=== PATIENT | female | born 1990 | race Two or more races ===

== ENCOUNTER 2016-12-29 11:56 | Emergency (ER) | payer MEDICAID ==
[~2016-12-29] VITALS: Ht 160 cm; Wt 53.5 kg
--- NOTE | 2016-12-29 12:16 | NUR ---
PATIENT PRESENTS TO ER C/O NECK SWELLING. STATING SHE WAS TAKING ANTIBIOTICS FROM SONI. PATIENT IS A/OX 4. BREATHING EVEN AND UNLABORED ON ROOM AIR. NO SOB. VITALS STABLE. SAFETY AND COMFORT MEASURES IN PLACE. AWAITING MD ORDERS.
[2016-12-29 12:44] LABS: BASOPHILS % (AUTO) 0.6 % (0.0-2.0); EOSINOPHILS # (AUTO) 0.2 /CMM (0.0-0.7); EOSINOPHILS % (AUTO) 3.3 % (0.0-6.0); HEMATOCRIT 39 % (33-45); HEMOGLOBIN 12.6 g/dL (11.5-14.8); LYMPHOCYTES # (AUTO) 2.9 /CMM (0.8-4.8); LYMPHOCYTES % (AUTO) 39.8 % (20.0-44.0); MEAN CORPUSCULAR HEMOGLOBIN 26 PG (26.0-33.0); MEAN CORPUSCULAR HGB CONC 32 g/dl (31.0-36.0); MEAN CORPUSCULAR VOLUME 80 fL (82-100); MONOCYTES # (AUTO) 0.5 /CMM (0.1-1.30); MONOCYTES % (AUTO) 7.3 % (2.0-12.0); NEUTROPHILS # (AUTO) 3.6 /CMM (1.8-8.9); PLATELET COUNT (AUTO) 307 /CMM (150-450); RDW COEFFICIENT OF VARIATION 14.1 (11.5-15.0); WHITE BLOOD COUNT (AUTO) 7.3 K/uL (4.3-11.0)
--- NOTE | 2016-12-29 13:05 | NUR ---
US TECH AT BEDSIDE.
[2016-12-29 13:15] LABS: T4 (THYROXINE) 9.4 ug/dL (4.7-13.3); THYROID STIMULATING HORMONE 1.411 uIU/mL (0.358-3.74)
--- NOTE | 2016-12-29 13:34 | NUR ---
NIGHT MANAGER AT BEDSIDE.
[2016-12-29 13:43] VITALS: BP 122/86
--- NOTE | 2016-12-29 13:43 | NUR ---
Patient discharged to home in stable condition. Written and verbal after care instructions given. Patient verbalizes understanding of instruction.
== END 2016-12-29 13:48 | disposition home or self-care (01) ==
LOC: ER 11:58
DX: E04.1 Nontoxic single thyroid nodule (principal); J02.9 Acute pharyngitis, unspecified
CPT/HCPCS: 36415; 76536-TC; 84436-TC; 84443-TC; 84480; 85025-TC; A4606; Z7610

== ENCOUNTER 2018-12-29 04:18 | Emergency (ER) | payer BC ==
[~2018-12-29] VITALS: Ht 160 cm; Wt 49.0 kg
--- NOTE | 2018-12-29 04:46 | NUR ---
BIB FAQMILY FRO ANXIETY ATTACK. PT HAD ONE SIMILAR EPIASODE 6 YRS AGO. CURRENTLY IS NOT TAKING ANY MEDICATION FOR ANXIETY
[2018-12-29] MEDS ORDERED: LORAZEPAM 0.5 MG TABLET ONE (05:10)
--- NOTE | 2018-12-29 05:21 | NUR ---
RESTING IN BED AWAKE BUT DROWSY. CALM AND QUIET .MOM AT THE BED SIDE. VSS. WILL CONT TO MONITOR ,
[2018-12-29] MEDS ORDERED: LORAZEPAM 0.5 MG TABLET PO ONE (05:30)
[2018-12-29 05:53] VITALS: BP 116/78
--- NOTE | 2018-12-29 05:53 | NUR ---
Patient discharged to home in stable condition. Written and verbal after care instructions given. Patient verbalizes understanding of instruction and reported feeling better.
== END 2018-12-29 05:54 | disposition home or self-care (01) ==
LOC: ER 04:19
DX: F41.9 Anxiety disorder, unspecified (principal)
CPT/HCPCS: 80305

== ENCOUNTER 2022-06-23 03:44 | Inpatient (IN) | payer OTHER ==
[~2022-06-23] VITALS: Ht 162.6 cm; Wt 63.5 kg
--- NOTE | 2022-06-23 04:00 | NUR ---
Patient came in to the er c/o abdominal pain, states she think its "appendicitis". on room air, breathing evenly and unlabored. Kept comfortable, will continue to monitor accordingly.
[2022-06-23] MEDS ORDERED: KETOROLAC TROMETHAMINE INJ 30 MG/ML VIAL IV ONE (04:30)
[2022-06-23] MEDS ORDERED: ONDANSETRON HCL/PF 4 MG/2 ML VIAL IV ONE (04:30)
[2022-06-23] MEDS ORDERED: KETOROLAC TROMETHAMINE 15 MG/ML VIAL ONE (04:43)
[2022-06-23] MEDS ORDERED: ONDANSETRON HCL/PF 4 MG/2 ML VIAL ONE (04:44)
[2022-06-23 04:59] LABS: BASOPHILS % (AUTO) 0.1 % (0.0-2.0); EOSINOPHILS % (AUTO) 0.1 % (0.0-6.0); HEMATOCRIT 35 % (33-45); HEMOGLOBIN 11.4 g/dL (11.5-14.8); LYMPHOCYTES # (AUTO) 1.7 K/uL (0.8-4.8); LYMPHOCYTES % (AUTO) 10.1 % (20.0-44.0); MEAN CORPUSCULAR HGB CONC 32 g/dl (31.0-36.0); MEAN CORPUSCULAR VOLUME 78 fL (82-100); MONOCYTES # (AUTO) 0.9 K/uL (0.1-1.30); MONOCYTES % (AUTO) 5.5 % (2.0-12.0); NEUTROPHILS # (AUTO) 13.8 K/uL (1.8-8.9); NEUTROPHILS % (AUTO) 84.2 % (43.0-81.0); PLATELET COUNT (AUTO) 217 K/uL (150-450); RED BLOOD CELL COUNT(AUTO) 4.57 MIL/uL (4.0-5.2); WHITE BLOOD COUNT (AUTO) 16.4 K/uL (4.3-11.0)
[2022-06-23 04:59] LABS: BILIRUBIN,URINE NEGATIVE (NEGATIVE); COLOR,URINE YELLOW (YELLOW); LEUKOCYTE ESTERASE ,URINE NEGATIVE (NEGATIVE); NITRITE, URINE NEGATIVE (NEGATIVE); PROTEIN,URINE NEGATIVE (NEGATIVE); UGLUCOSE NEGATIVE (NEGATIVE); UROBILINOGEN,URINE 0.2 EU/dL (0.2)
[2022-06-23 05:00] LABS: BACTERIA,URINE Rare /HPF (None Seen); RBC,URINE 0-2 /HPF (0-2); SQUAMOUS EPITHELIAL CELL,UR Few /HPF (None Seen); WBC,URINE 0-2 /HPF (0-3)
[2022-06-23 05:10] LABS: CALCIUM, SERUM 9.2 mg/dL (8.5-10.1); CREATININE 0.7 mg/dL (0.6-1.3); POTASSIUM 4.1 mmol/L (3.5-5.1)
[2022-06-23 05:20] LABS: ALBUMIN 3.7 g/dL (3.4-5.0); BILIRUBIN,DIRECT 0.1 mg/dL (0.0-0.2); TOTAL PROTEIN, SERUM 7.4 g/dL (6.4-8.2)
[2022-06-23] MEDS ORDERED: IOHEXOL-300 100 ML VIAL IV ONE (05:34)
[2022-06-23] MEDS ORDERED: CT SWABBABLE VALVE TRANS SET 1 EA INFUS.SET MC ONE (05:35)
[2022-06-23] MEDS ORDERED: IV NS 0.9% 250 ML IV ONE (05:35)
[2022-06-23 05:40] LABS: BILIRUBIN,TOTAL 0.4 mg/dL (0.2-1.0)
[2022-06-23] MEDS ORDERED: PIPERACILLIN /TAZOBACTAM 3.375 G VIAL IV ONE (06:56)
[2022-06-23] MEDS ORDERED: PIPERACILLIN /TAZOBACTAM 3.375 G in IV D5W 50 ML IV ONE (07:00)
--- NOTE | 2022-06-23 07:00 | NUR ---
covid swab sent
--- NOTE | 2022-06-23 07:04 | NUR ---
pt states last full meal 5pm 06/22/22
[2022-06-23] MEDS ORDERED: MORPHINE SULFATE INJ 2 MG/ML DISP.SYRIN IV ONE ×2 (07:30→10:00)
[2022-06-23] MEDS ORDERED: MORPHINE SULFATE INJ 2 MG/ML DISP.SYRIN ONE (07:40)
--- NOTE | 2022-06-23 07:45 | NUR ---
PT ABLE TO AMBULATE TO BATHROOM.
--- NOTE | 2022-06-23 07:55 | NUR ---
MORPHINE 2MG IV GIVEN INDICATED FOR ABD PAIN.
[2022-06-23] MEDS ORDERED: MORPHINE SULFATE INJ 4 MG/ML DISP.SYRIN ONE (09:40)
--- NOTE | 2022-06-23 10:30 | NUR ---
REPORT GIVEN TO SOBIA WEBSTER FOR KURTIS
--- NOTE | 2022-06-23 10:36 | NUR ---
NPO SINCE [id number]/22/22
--- NOTE | 2022-06-23 10:50 | NUR ---
RN NOTE- PT TO RM 311-2 FOR LAPRASCOPIC APPENDECTOMY. BEGIN ADMISSION PROCESS
--- NOTE | 2022-06-23 10:55 | NUR ---
RN ADMITTING NOTE RECEIVED PATIENT FROM ED ACCOMPANIED BY FAMILY. PATIENT IS A/0X4 AND ABLE TO MAKE NEEDS KNOWN. PATIENT REPORTS PAIN OF 9/10 BUT SAYS THE MORPHINE SHE RECEIVED IN ED IS HELPING HER. BREATHING ON ROOM AIR, NO SOB OR SIGNS OF RESPIRATORY DISTRESS NOTED. NO VOCALIZATION OF CARDIAC PAIN OR DISTRESS AT THIS TIME. SAFETY PRECAUTIONS IN PLACE WITH BED IN LOWEST LOCKED POSITION, TRAY AND CALL LIGHT WITHIN REACH. PATIENT SCHEDULED FOR LAPAROSCOPIC APPENDECTOMY. PATIENT STATES SHES READY FOR SURGERY, ALL CONSENTS SIGNED. PATIENT KEPT NPO. ALL NEEDS MET AT THIS TIME. WILL CONTINUE TO MONITOR
--- NOTE | 2022-06-23 12:20 | NUR ---
RN NOTE- SURGICAL TEAM TO FLOOR. TOOK PT TO SURGICAL SUITE. TYPE/SCREEN, CONSENT AND TRANSFUSION, PRE OP CHECKLIST COMPLETED.
[2022-06-23] MEDS ORDERED: ROCURONIUM BROMIDE 50 MG/5 ML ONE (13:07)
[2022-06-23] MEDS ORDERED: FENTANYL PF 100MCG/2ML AMPUL ONE (13:07)
[2022-06-23] MEDS ORDERED: BUPIVACAINE MPF W/EPI 0.25% 30 ML VIAL ONE (13:24)
[2022-06-23] MEDS ORDERED: HYDROCODONE/APAP 5/325MG TABLET PO PRN (13:30)
[2022-06-23] MEDS ORDERED: ACETAMINOPHEN 325 MG TABLET PO PRN (13:30)
[2022-06-23] MEDS ORDERED: ONDANSETRON HCL/PF 4 MG/2 ML VIAL IVP PRN (13:30)
[2022-06-23] MEDS: PIPERACILLIN /TAZOBACTAM 3.375 G in IV D5W 50 ML IV SCH ×2 (15:55→22:04)
[2022-06-23] MEDS ORDERED: clonazePAM 0.5 MG TABLET PO PRN (16:00)
[2022-06-23] MEDS: HYDROMORPHONE 1 MG/1 ML DISP.SYRIN IV PRN ×2 (16:37→20:42)
--- NOTE | 2022-06-23 18:40 | NUR ---
RN CLOSING NOTE PT AWAKE IN BED, COMFORTABLY RESTING WITH FRIENDS AT BEDSIDE. A/OX4 AND ABLE TO MAKE NEEDS KNOWN. PT IS ON ROOM AIR, BREATHING EVEN AND NONLABORED WITH NO SOB OR RESPIRATORY DISTRESS NOTED. NO CARDIAC DISTRESS VOCALIZED OR EXPRESSED. PAIN FROM LAPAROSCOPIC APPENDECTOMY CONTROLLED WITH MEDS AND ICE. SAFETY PRECAUTIONS IN PLACE WITH BED IN LOWEST LOCKED POSITION, TRAY AND CALL LIGHT WITHIN REACH. ALL NEEDS MET AT THIS TIME. WILL ENDORSE KURTIS TO RETURNING OFFICER NURSE.
--- NOTE | 2022-06-23 19:50 | NUR ---
MSRN FULLY AWAKE, POST OP PAIN TOLERABLE FOR NOW. LAP SITES COVERED, DRY AND INTACT.ICE PACKS OVER SITE. DISCUSS WITH PATIENT PLAN OF CARE AND MEDICATION REGIMEN. APPEARS TO UNDERSTAND. ASSISTED TO RESTROOM VOIDED FREELY. SAFETY PRECAUTIONS EMPHAIZED WELL UNDERSTOOD.
[2022-06-23 20:00] VITALS: BP_SYST 119; BP_SYST 61; BP_DIAS 107; BP_DIAS 68
--- NOTE | 2022-06-23 20:45 | NUR ---
MSRN VERBALIZES POST OP ABD PAIN, DILAUDED 1 MG IVP ADMINISTERED. BEDREST FOR NOW, INSTRUCTED.
[2022-06-23] MEDS ORDERED: risperiDONE 1 MG TABLET PO SCH (22:00)
--- NOTE | 2022-06-23 22:15 | NUR ---
MSRN OTHER DUE MEDS GIVEN STATED STARTING TO BELCH BUT DID NOT PASS GAS. FEELS BETTER THIS TIME.
--- NOTE | 2022-06-24 00:30 | NUR ---
XIMENA CALLED STATED FELT HEART BEATING FAST, VITAL SIGNS CHECKED STABLE. STATED SHE HAS NO PAIN AND HAVING PANIC ATTACKS/ANXIETY AND WANTED TO GO HOME. DISCUSSED WITH PATIENT RISK OF LEAVING, NOT EVEN 24HRS POST OP. ADVISED TO CALL HER MOTHER SINCE SHE WANTED HER TO STAY EARLIER WHICH SHE DID NOT INFORM STAFF. SPOKE TO HER MOTHER AND PT AGREED TO STAY. Addendum: 06/24/22 at 0502 by NASIM AGUSTIN RN BP 118/58, PULSE 104, 97% RA.
--- NOTE | 2022-06-24 04:57 | NUR ---
MSRBradley HAS BEEN GOING TO RESTROOM BY HERSELF, ALL NEEDS ATTENDED. NO COMPLAINTS MADE
--- NOTE | 2022-06-24 06:57 | NUR ---
MSRN EDUCATE PATIENT USE OF INCENTIVE SPIROMETRY, WITH RETURN DEMO, WELL UNDERSTOOD. ALL NEEDS ATTENDED, EAGER TO GO HOME..
[2022-06-24 07:09] LABS: HEMATOCRIT 34 % (33-45); HEMOGLOBIN 10.8 g/dL (11.5-14.8); LYMPHOCYTES % (AUTO) 6.9 % (20.0-44.0); MEAN CORPUSCULAR HGB CONC 32 g/dl (31.0-36.0); MEAN CORPUSCULAR VOLUME 77 fL (82-100); MONOCYTES # (AUTO) 0.7 K/uL (0.1-1.30); MONOCYTES % (AUTO) 4.8 % (2.0-12.0); NEUTROPHILS # (AUTO) 13.1 K/uL (1.8-8.9); NEUTROPHILS % (AUTO) 88.3 % (43.0-81.0); PLATELET COUNT (AUTO) 222 K/uL (150-450); RED BLOOD CELL COUNT(AUTO) 4.37 MIL/uL (4.0-5.2); WHITE BLOOD COUNT (AUTO) 14.8 K/uL (4.3-11.0)
--- NOTE | 2022-06-24 07:10 | NUR ---
RAG SORTER OPENING NOTES: RECEIVED PATIENT IN BED, AWAKE, ALERT,ORIENTED X 4. NO RESPIRATORY DISTRESS NOTED, BREATHING EVEN AND UNLABORED. HAS IV ACCESS ON LEFT HAND, PATENT, INTACT, FLUSHES WELL WITH NO S/S INFILTRATION NOTED. NO BLEEDING NOTED ON 3 SURGERY SITES, SMALL DRESSING DRY AND INTACT. PATIENT C/O MINIMAL PAIN, WILL MEDICATE ORDERED. INSTRUCTED PATIENT TO USE INCENTIVE SPIROMETER. ALL SAFETY MEASURES IN PLACE. BED LOCKED AND IN LOWEST POSITION. CALL LIGHT WITHIN REACH. WILL CONTINUE TO MONITOR PATIENT THROUGHOUT SHIFT.
[2022-06-24 07:43] LABS: CALCIUM, SERUM 8.7 mg/dL (8.5-10.1); CREATININE 0.6 mg/dL (0.6-1.3); POTASSIUM 3.9 mmol/L (3.5-5.1)
[2022-06-24 08:00] VITALS: BP 104/60
[2022-06-24] MEDS ORDERED: risperiDONE 1 MG TABLET PO SCH (09:00)
--- NOTE | 2022-06-24 11:30 | NUR ---
KELSEY CONTE, JAIRON MADE ROUNDS TO SEE THE PATIENT
[2022-06-24] MEDS ORDERED: ACETAMINOPHEN ES 500 MG TABLET PO PRN (12:00)
--- NOTE | 2022-06-24 14:07 | NUR ---
SANIYA FROM DR. PEREZ'S OFFICE CAME BY AND SAW THE PATIENT AND RECOMMENDED PATIENT TO BE CLEARED FOR D/C
--- NOTE | 2022-06-24 14:25 | NUR ---
RECEIVED DISCHARGE INSTRUCTIONS FROM Casimiro CONTE. PATIENT AND FAMILY INFORMED AND DISCHARGE PAPER WORK STARTED
[2022-06-24] MEDS ORDERED: Hydrocodone/Apap 5/325MG PO (14:26)
--- NOTE | 2022-06-24 15:10 | NUR ---
REVIEWED DISCHARGE INSTRUCTIONS TO THE PATIENT AND FAMILY. PATIENT AGREED AND UNDERSTOOD AND SIGNED THE DISCHARGE PAPERWORK. PRESCRIPTION HANDED TO THE PATIENT WELL. REMOVED IV LINE, NOTED WITH HUB INTACT. ALSO REMOVED PATIENT'S ID BAND. BELONGINGS LIST DONE. PATIENT WITH NO C/O PAIN OR DISCOMFORT AT THIS TIME. PATIENT LEFT WITH HER PARENTS AND LEFT IN NO ACUTE DISTRESS. PATIENT APPRECIATED ALL THE HELP
== END 2022-06-24 16:07 | disposition home or self-care (01) | DRG 710 ==
LOC: ER 03:44 → MED 10:35
PROVIDERS: ADMIT Nurse Practitioner Acute Care; ATTEND Registered Nurse
PROC: 0DTJ4ZZ Resection of Appendix, Percutaneous Endoscopic Approach (ICD-10-PCS; principal; 2022-06-23)
PROC: 0UB04ZZ Excision of Right Ovary, Percutaneous Endoscopic Approach (ICD-10-PCS; 2022-06-23)
DX: A41.9 Sepsis, unspecified organism (principal); E87.1 Hypo-osmolality and hyponatremia; K35.80 Unspecified acute appendicitis; N83.201 Unspecified ovarian cyst, right side; E86.1 Hypovolemia; F41.9 Anxiety disorder, unspecified; D18.09 Hemangioma of other sites; Z20.822 Contact with and (suspected) exposure to COVID-19; K56.41 Fecal impaction
CPT/HCPCS: 36415; 80048-TC; 80076-TC; 81001; 84703-TC; 85025-TC; 86850-TC; 87081-TC; 88304-TC; 88305-TC; C9803; G0378; J0330; J0690; J1100; J1170; J1885; J2270; J2405; J2543; J2704; J3010; J3490; J7030; J7040; J7050; J7060; Q9967

== ENCOUNTER 2022-06-27 12:34 | Emergency (ER) | payer OTHER ==
[~2022-06-27] VITALS: Ht 162.6 cm; Wt 63.5 kg
[~2022-06-27 12:34] MED LIST: Hydrocodone/Apap 5/325MG PO
--- NOTE | 2022-06-27 13:10 | NUR ---
BIBFAMILY C/O feeling lightheaded, night time fever x 4 days. appendectomy done 06/23/22. AMBULATORY, PLACED IN BED, AAOX4, BREATHING EVEN AND UNLABORED SATURATING AT 97%RA.
--- NOTE | 2022-06-27 13:25 | NUR ---
PRINTED CIRCUIT LAYOUT TAPER AT BEDSIDE
[2022-06-27] MEDS ORDERED: IV NS 0.9% 1,000 ML BAG IV ONE (13:30)
[2022-06-27 13:44] LABS: BASOPHILS % (AUTO) 0.3 % (0.0-2.0); EOSINOPHILS % (AUTO) 2.6 % (0.0-6.0); HEMATOCRIT 36 % (33-45); HEMOGLOBIN 11.4 g/dL (11.5-14.8); LYMPHOCYTES # (AUTO) 1.8 K/uL (0.8-4.8); LYMPHOCYTES % (AUTO) 33.7 % (20.0-44.0); MEAN CORPUSCULAR HGB CONC 32 g/dl (31.0-36.0); MEAN CORPUSCULAR VOLUME 79 fL (82-100); MONOCYTES # (AUTO) 0.6 K/uL (0.1-1.30); NEUTROPHILS # (AUTO) 2.7 K/uL (1.8-8.9); NEUTROPHILS % (AUTO) 51.4 % (43.0-81.0); PLATELET COUNT (AUTO) 270 K/uL (150-450); RED BLOOD CELL COUNT(AUTO) 4.59 MIL/uL (4.0-5.2); WHITE BLOOD COUNT (AUTO) 5.2 K/uL (4.3-11.0)
--- NOTE | 2022-06-27 14:02 | NUR ---
URINE SAMPLE SENT TO LAB
[2022-06-27 14:11] LABS: ALANINE AMINOTRANSFERASE 19 U/L (12-78); ALBUMIN 3.4 g/dL (3.4-5.0); ALKALINE PHOSPHATASE 66 U/L (46-116); ASPARTATE AMINOTRANSFERASE 13 U/L (15-37); BILIRUBIN,TOTAL 0.2 mg/dL (0.2-1.0); CARBON DIOXIDE 25 mmol/L (21-32); CHLORIDE 103 mmol/L (98-107); CREATININE 0.7 mg/dL (0.6-1.3); GLUCOSE 107 mg/dL (74-106); POTASSIUM 4.2 mmol/L (3.5-5.1); SODIUM SERUM 137 mmol/L (136-145); TOTAL PROTEIN, SERUM 7.8 g/dL (6.4-8.2); UREA NITROGEN, BLOOD 8 mg/dL (7-18)
[2022-06-27 14:28] LABS: BILIRUBIN,DIRECT 0.1 mg/dL (0.0-0.2)
[2022-06-27 14:44] LABS: BILIRUBIN,URINE NEGATIVE (NEGATIVE); COLOR,URINE YELLOW (YELLOW); LEUKOCYTE ESTERASE ,URINE NEGATIVE (NEGATIVE); NITRITE, URINE NEGATIVE (NEGATIVE); PH,URINE 6.5 (5.0-8.0); PROTEIN,URINE NEGATIVE (NEGATIVE); UGLUCOSE NEGATIVE (NEGATIVE); UROBILINOGEN,URINE 0.2 EU/dL (0.2)
--- NOTE | 2022-06-27 17:21 | NUR ---
Patient discharged to home in stable condition. Written and verbal after care instructions given. Patient verbalizes understanding of instruction.
[2022-06-27 17:23] VITALS: BP 112/54
== END 2022-06-27 17:16 | disposition home or self-care (01) ==
LOC: ER 12:40
DX: R53.1 Weakness (principal); R10.12 Left upper quadrant pain; Z90.89 Acquired absence of other organs
CPT/HCPCS: 36415; 74022-TC; 80048-TC; 80076-TC; 84484-TC; 85025-TC